=== PATIENT | male | born 1945 | race Caucasian/White ===

== ENCOUNTER 2016-11-14 12:37 | Day surgery (SDC) | payer MEDICARE ==
[~2016-11-14 12:37] MED LIST: CARAFATE1 GM PO; GABAPENTIN400 M2 PO; NITROSTAT0.3 MG SL; OMEPRAZOLE20 M2 PO; OXYCODONE15 MG PO; TRAZODONE50 MG PO; VISTARIL 50MG C50 M1 PO
[2016-11-14 17:11] VITALS: BP 136/71
== END 2016-11-14 16:50 | disposition home or self-care (01) ==
LOC: ENDO 12:37
PROVIDERS: ATTEND Internal Medicine Gastroenterology
PROC: 0DBL8ZX Excision of Transverse Colon, Via Natural or Artificial Opening Endoscopic, Diagnostic (ICD-10-PCS; principal; 2016-11-14)
PROC: 3E0H8GC Introduction of Other Therapeutic Substance into Lower GI, Via Natural or Artificial Opening Endoscopic (ICD-10-PCS; 2016-11-14)
DX: K59.00 Constipation, unspecified (principal); K92.2 Gastrointestinal hemorrhage, unspecified; D50.9 Iron deficiency anemia, unspecified; R14.0 Abdominal distension (gaseous); K64.4 Residual hemorrhoidal skin tags; K64.8 Other hemorrhoids; K56.60 Unspecified intestinal obstruction; K63.5 Polyp of colon; M10.9 Gout, unspecified; K21.9 Gastro-esophageal reflux disease without esophagitis; M06.9 Rheumatoid arthritis, unspecified; Z87.11 Personal history of peptic ulcer disease